=== PATIENT | female | born 1995 | race Caucasian/White ===

== ENCOUNTER 2018-07-20 12:43 | Day surgery (SDC) | payer BC, OTHER ==
[2018-07-16 08:29] VITALS: BP 116/76
[~2018-07-20] VITALS: Ht 157.5 cm; Wt 53.9 kg
[~2018-07-20 12:43] MED LIST: ASCO500T8 PO; VITA100C8 PO
[2018-07-20] MEDS ORDERED: LACTATED RINGERS 1,000 ML IV SCH ×3 (12:52→18:30)
[2018-07-20 13:42] LABS: HCG UR SG 1.024 (1.003-1.030)
[2018-07-20] MEDS ORDERED: METOCLOPRAMIDE 5 MG/ML, 2ML ONE (15:59)
[2018-07-20] MEDS ORDERED: CEFAZOLIN 1,000 MG ONE (15:59)
[2018-07-20] MEDS ORDERED: ONDANSETRON 2MG/ML, 2ML ONE (15:59)
[2018-07-20] MEDS ORDERED: DEXAMETHASONE 4 MG/ML, 1ML ONE (15:59)
[2018-07-20] MEDS ORDERED: PROPOFOL 10 MG/ML, 20ML ONE (15:59)
[2018-07-20] MEDS ORDERED: FENTANYL PF 100 MCG/2ML IV PRN (17:00)
[2018-07-20] MEDS ORDERED: MEPERIDINE/PF 25MG/0.5ML IVPush PRN (17:00)
[2018-07-20] MEDS ORDERED: OXYcodone 5 MG/5 ML ORAL.SOL UDC PO PRN (17:00)
[2018-07-20] MEDS ORDERED: HYDROmorphone 1 MG/ML, 1ML IV PRN (17:00)
[2018-07-20] MEDS ORDERED: MIDAZOLAM 1 MG/ML, 2ML IV PRN (17:00)
[2018-07-20] MEDS ORDERED: ONDANSETRON 2MG/ML, 2ML IVPush PRN (17:00)
[2018-07-20] MEDS ORDERED: LABETALOL 5MG/ML, 20ML IV PRN (17:00)
[2018-07-20] MEDS ORDERED: KETOROLAC 30 MG/1 ML IV PRN (18:30)
[2018-07-20] MEDS ORDERED: IBUPROFEN 600 MG TABLET PO PRN (18:30)
[2018-07-20] MEDS ORDERED: HYDROcodone/APAP 5/325 TABLET PO PRN (18:30)
[2018-07-20] MEDS ORDERED: ONDANSETRON 2MG/ML, 2ML IV PRN (18:30)
== END 2018-07-20 19:20 | disposition home or self-care (01) ==
LOC: OUT 12:43 → 4NOR 17:26 → OUT 19:20
PROVIDERS: ATTEND Obstetrics & Gynecology
DX: R10.2 Pelvic and perineal pain (principal); G89.29 Other chronic pain; Z98.890 Other specified postprocedural states
CPT/HCPCS: 36415; 49320; 81025; 86850; 86900; J0690; J1100; J2250; J2405; J2704; J2765; J3010; J3490; J7120; G0378